=== PATIENT | female | born 1980 | race Caucasian/White ===

== ENCOUNTER 2019-01-09 02:59 | Emergency (ER) | payer BC ==
[2019-01-09] MEDS ORDERED: Morphine 4 MG/ML VIAL ONE (03:09)
[2019-01-09 03:19] LABS: #Basophils 0.1 thou/uL (0.0-0.2); #Eosinphils 0.3 thou/uL (0.0-0.7); #Lymphocytes 2.6 thou/uL (1.20-3.40); #Monocytes 1.1 thou/uL (0.11-0.59); #Neutrophils 13.3 thou/uL (1.40-6.50); %Basophils 0.8 % (0.0-1.0); %Eosinophils 1.8 % (0.0-10.0); %Lymphocytes 14.6 % (21.0-51.0); %Monocytes 6.2 % (0.0-10.0); %Neutrophils 76.5 % (42.0-75.0); Hemoglobin 9.8 g/dL (12.0-16.0); Mean Corpuscular HGB CONC 34.6 g/dL (32.0-36.0); Mean Corpuscular Hemoglobin 33.4 pg (27.0-31.0); Mean Corpuscular Volume 96.5 fL (78.0-98.0); Mean Platelet Volume 6.5 fL (7.4-10.4); Platelet Count 318 thou/uL (130-400); RBC Distribution Width 11.7 % (11.5-14.5); Red Blood Cell (RBC) Count 2.94 mill/uL (4.20-5.40); White Blood Cell (WBC) Count 17.4 thou/uL (4.8-10.8)
[2019-01-09] MEDS ORDERED: Fentanyl 100 MCG/2 ML VIAL ONE (03:23)
[2019-01-09 03:27] LABS: ALT (SGPT) 14 U/L (8-55); AST (SGOT) 18 U/L (5-34); Albumin 3.5 g/dL (3.5-5.0); Alkaline Phosphatase 66 U/L (40-150); Anion Gap 13 mmol/L (10-20); BUN (Urea Nitrogen) 10 mg/dL (7.0-18.7); Bilirubin, Total 0.3 mg/dL (0.2-1.2); Calc. Creatinine Clearance 0 mL/min (70-130); Calcium 8.5 mg/dL (7.8-10.44); Carbon Dioxide 22 mmol/L (22-29); Chloride 105 mmol/L (98-107); Estimated GFR-MDRD Greater than 90; Globulin 3.1 g/dL (2.4-3.5); Glucose 99 mg/dL (70-105); Potassium 4.1 mmol/L (3.5-5.1); Protein, Total 6.6 g/dL (6.0-8.3); Sodium 136 mmol/L (136-145)
[2019-01-09] MEDS ORDERED: Ketorolac Tromethamine 30 MG/ML VIAL ONE (04:08)
[2019-01-09 05:00] LABS: Hemoglobin 9.1 g/dL (12.0-16.0)
[2019-01-09] MEDS ORDERED: Iopamidol 370 76% 100 ML VIAL ONE (09:00)
--- NOTE | 2019-01-09 10:27 | CT ---
PRELIMINARY REPORT/[facility]/EMERGENCY AFTER HOURS PROCEDURE: EXAM: CT Abdomen and Pelvis With Contrast EXAM DATE/TIME: 01/09/2019 3:44 AM CLINICAL HISTORY: 38 years old, female; Pain; Other: Suprapubic pain; Patient HX: PT states was told a few days ago meche t her 12 week was no longer viable. prescribed medicine, C/O of severe suprapubic abd pa in. ; Additional info: PT C/O severe abd pain with cramping and bleeding TECHNIQUE: Axial computed tomography images of the abdomen and pelvis with intravenous contrast. All CT scans at this facility use at least one of these dose optimization techniques: automated exposure control; mA and/or kV adjustment per patient size (includes targeted exams where dose is matched to clinical indication); or iterative reconstruction. Coronal and sagittal reformatted images were created and reviewed. CONTRAST: Contrast Material: 95 ml of ISOVUE; Contrast Route: RT AC COMPARISON: No relevant prior studies available. FINDINGS: Lower thorax: No acute findings. ABDOMEN: Liver: Normal. Gallbladder and bile ducts: Normal. Pancreas: Normal. Spleen: Normal. Adrenals: Normal. Kidneys and ureters: 3 mm calculus probably within the right posterior urinary bladder, in the region of the right ureterovesicular junction, without hydronephrosis. Stomach and bowel: Normal. Appendix: No evidence of appendicitis. PELVIS: Bladder: Unremarkable as visualized. Reproductive: Enlarged uterus, with the endometrial cavity containing fluid and probable intrauterine gestation/retained products of conception. ABDOMEN and PELVIS: Intraperitoneal space: Small amount of pelvic free fluid. Bones/joints: No acute abnormality. Soft tissues: Normal. Vasculature: Phleboliths in the pelvis. Lymph nodes: Normal. No enlarged lymph nodes. IMPRESSION: Enlarged uterus, with the endometrial cavity containing fluid and probable intrauterine gestation/ret ained products of conception. Recommend further evaluation. Thank you for allowing us to participate in the care of your patient. Dictated and Authenticated by: Alexandro Wiggins MD 01/09/2019 4:13 AM Central Time ([place] & [place]) FINAL REPORT CT ABDOMEN AND PELVIS WITH IV CONTRAST: Date: 01/09/19 FINDINGS/IMPRESSION: Liver, spleen, pancreas, and kidneys are unremarkable. Small bowel loops normal. Prominent stool thro ughout the colon. Images through the pelvis reveal an enlarged uterus. There is heterogeneity within the endometrial cavity consistent with intrauterine gestation or products of gestation. Prominent flu id or blood in the lower uterine segment and vaginal vault. I am in agreement with the preliminary report issued by [facility]. POS: [facility]IAN
== END 2019-01-09 05:18 | disposition home or self-care (01) ==
LOC: BURERS 02:59
DX: O03.4 Incomplete spontaneous abortion without complication (principal)
CPT/HCPCS: 74177; 80053; 83605; 85025; 86850; 86870; 86880; 86900; 86901; 86905; 96374; 96375; J1885; J2270; J3010; Q9967

== ENCOUNTER 2022-05-02 14:33 | Emergency (ER) | payer BC, SELFPAY ==
[2022-05-02] MEDS ORDERED: Acetaminophen 500 MG TAB ONE (15:06)
== END 2022-05-02 15:17 | disposition home or self-care (01) ==
LOC: BURERS 14:33
DX: U07.1 COVID-19 (principal); F17.200 Nicotine dependence, unspecified, uncomplicated; Z87.442 Personal history of urinary calculi
CPT/HCPCS: 99283